=== PATIENT | female | born 1965 | race Caucasian/White ===

== ENCOUNTER 2018-12-04 08:08 | Day surgery (SDC) | payer OTHER ==
[~2018-12-04] VITALS: Ht 157.5 cm; Wt 64.9 kg
[2018-12-04] MEDS ORDERED: NO HOME MEDS (08:55)
[2018-12-04 09:13] VITALS: Ht 157.5 cm; Wt 64.9 kg
[2018-12-04 09:25] VITALS: BP 139/71; PULSE 92; RESP 16
[2018-12-04] MEDS ORDERED: FENTAnyl 50 MCG/ML VIAL ONE (10:15)
[2018-12-04] MEDS ORDERED: MIDAZOLAM 1 MG/ML 2 ML INJ ONE ×3 (10:15)
[2018-12-04 10:34] VITALS: BP 110/64; PULSE 74; RESP 15
== END 2018-12-04 15:55 | disposition home or self-care (01) ==
LOC: GIL 08:08
PROVIDERS: ATTEND Internal Medicine Gastroenterology
DX: Z12.11 Encounter for screening for malignant neoplasm of colon (principal); K64.8 Other hemorrhoids
CPT/HCPCS: 45378; 84703; J2250; J3010